=== PATIENT | female | born 1975 | race Caucasian/White ===

== ENCOUNTER 2017-12-14 19:43 | Emergency (ER) | END 2017-12-15 01:45 | disposition home or self-care (01) ==

== ENCOUNTER 2017-12-17 12:12 | Emergency (ER) | END 2017-12-17 14:42 | disposition home or self-care (01) ==

== ENCOUNTER 2017-12-24 09:47 | Emergency (ER) | END 2017-12-24 11:32 | disposition home or self-care (01) ==